=== PATIENT | female | born 1980 | race American Indian/Alaskan Native ===

== ENCOUNTER 2018-12-04 05:53 | Emergency (ER) | payer SELFPAY ==
--- NOTE | 2018-12-04 06:55 | XRay Report ---
RIGHT KNEE 3 VIEWS 0623 INDICATION: right knee pain COMPARISON: None available. FINDINGS: No fractures or dislocations are seen. Signer Name: Aleksandr Ramirez MD Signed: 12/04/2018 6:51 AM Workstation Name: [id number]
--- NOTE | 2018-12-04 07:06 | Emergency Department Report ---
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 pt states that she was at work when she slipped and fell in some grease. she has been ambulatory since the incident with some discomfort. she denies any numbness or weakness. she denies any previous injury of the knee. PMHx of asthma. allergy to PCN. - Related Data Previous Rx's Medication Instructions Recorded Last Taken Type Naproxen [Naprosyn] 500 mg PO BID PRN #20 tablet 12/04/18 Unknown Rx Allergies Allergy/AdvReac Type Severity Reaction Status Date / Time Penicillins Allergy Hives Verified 12/04/18 06:06 ED Review of Systems ROS: Stated complaint: RT KNEE PAIN Other details as noted in HPI Comment: All other systems reviewed and negative ED Past Medical Hx - Past Medical History Previous Medical History?: Yes Hx Asthma: Yes - Surgical History Past Surgical History?: Yes Additional Surgical History: Hernia repair - Social History Smoking Status: Current Every Day Smoker Substance Use Type: None - Medications Home Medications: Home Medications Medication Instructions Recorded Confirmed Last Taken Type Naproxen [Naprosyn] 500 mg PO BID PRN #20 tablet 12/04/18 Unknown Rx ED Physical Exam - General Limitations: No Limitations General appearance: alert, in no apparent distress - Head Head exam: Present: atraumatic, normocephalic - Eye Eye exam: Present: normal appearance - ENT ENT exam: Present: mucous membranes moist - Extremities Exam Extremities exam: Present: other (palpation anywhere on the right knee the patient states ellicits pain, no obvoius edema, no crepitus, no obvious deformity, pt refuses to do ROM, pt will not allow to fully examine the right knee to test ligaments, 2+ distal pulses) - Neurological Exam Neurological exam: Present: alert, oriented X3 - Psychiatric Psychiatric exam: Present: normal affect, normal mood - Skin Skin exam: Present: warm, dry, intact ED Course Vital Signs 12/04/18 12/04/18 06:01 07:39 Temperature 98.6 F Pulse Rate 75 70 Respiratory 16 16 Rate Blood Pressure 129/76 Blood Pressure 124/78 [Left] O2 Sat by Pulse 100 99 Oximetry ED Medical Decision Making - Radiology Data Radiology results: report reviewed RIGHT KNEE 3 VIEWS 0623 INDICATION: right knee pain COMPARISON: None available. FINDINGS: No fractures or dislocations are seen. 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 she has been ambulatory since the incident with some discomfort. she denies any numbness or weakness. she denies any previous injury of the knee. PMHx of asthma. allergy to PCN. VSS. on exam: palpation anywhere on the right knee the patient states ellicits pain, no obvious edema, no crepitus, no obvious deformity, pt refuses to do ROM, pt will not allow to fully examine the right knee to test ligaments, 2+ distal pulses. XR right knee: No fractures or dislocations are seen. will place pt in flora wrap, advised to remove at night. will give crutches to use. given prescription for naproxen. advised to take as prescribed as needed. will have pt follow up with an orthopedic doctor to have full knee assessment. advised to use ice, rest, elevation. follow up with an orthopedic doctor. return to the emergency room for any new or worsening symptoms. - Differential Diagnosis strain, sprain, fx, dislocation, tendon/ligament injury Critical care attestation.: If time is entered above; I have spent that time in minutes in the direct care of this critically ill patient, excluding procedure time. ED Disposition Clinical Impression: Right knee pain Qualifiers: Chronicity: acute Qualified Code(s): M25.561 - Pain in right knee Disposition: DC-01 TO HOME OR SELFCARE Is pt being admited?: No Does the pt Need Aspirin: No Condition: Stable Instructions: Knee Sprain (ED), Crutch Instructions (ED), RICE Therapy (ED) Additional Instructions: take medication as prescribed as needed. use ice, rest, elevation. do not sleep in acewrap. follow up with an orthopedic doctor. return to the emergency room for any new or worsening symptoms. Prescriptions: Naproxen [Naprosyn] 500 mg PO BID PRN #20 tablet PRN Reason: pain Referrals: NIRAV RICH MD [Staff Physician] - 2-3 Days Forms: Work/School Release Form(ED) Time of Disposition: 07:09 Print Language: NEPALI
[2018-12-04] MEDS ORDERED: TORADOL PO ONE (07:30)
[2018-12-04 07:40] VITALS: BP 124/78
== END 2018-12-04 07:39 | disposition home or self-care (01) ==
LOC: ED 05:53
DX: M25.561 Pain in right knee (principal); J45.909 Unspecified asthma, uncomplicated; F17.200 Nicotine dependence, unspecified, uncomplicated; Z88.0 Allergy status to penicillin

== ENCOUNTER 2020-02-07 20:07 | Emergency (ER) | payer SELFPAY ==
--- NOTE | 2020-02-07 22:56 | XRay Report ---
LEFT KNEE 3 VIEWS INDICATION / CLINICAL INFORMATION: left knee injury. COMPARISON: None available. FINDINGS: BONES/JOINT(S): No acute fracture or subluxation. No significant degenerative changes. SOFT TISSUES: No significant abnormality. ADDITIONAL FINDINGS: None. Signer Name: Merlin Pinto MD Signed: 02/07/2020 10:51 PM Workstation Name: [id number]
[2020-02-08] MEDS ORDERED: ACETAMINOPHEN 500 MG TAB PO ONE (01:55)
[2020-02-08] MEDS ORDERED: IBUPROFEN 600 MG TAB PO ONE (01:55)
--- NOTE | 2020-02-08 02:43 | Emergency Department Report ---
ED Lower Extremity HPI - General Chief Complaint: Extremity Injury, Lower Stated Complaint: FALL RIGHT KNEE INJURY Source: patient, EMS Mode of arrival: Stretcher Limitations: No Limitations - History of Present Illness Initial Comments: Patient is a 39-year-old -[place] female with a history of asthma who presents to the ED with complaint of acute onset persistent severe left knee pain after she [place] 2 [place] and landed on the left knee in the process. Patient states that the pain has been persistent and worse with ambulation and that she also developed mild swelling to the left knee. Patient denies syncope, seizures, traumatic injury, dizziness, chest pain, shortness of breath, numbness and tingling or weakness of lower extremities bilaterally, headache, neck pain, back pain, hip pain, abdominal pain or change in vision. MD Complaint: thigh injury (left), knee injury (left knee pain), fall -: Sudden, days(s) (2) Injury: Thigh: Left (left thigh), Knee: Left (left thigh) Type of Injury: blunt (from the fall) Place: street/outdoors Severity: severe Severity scale (0 -10): 8 Improves With: nothing Worsens With: weight bearing, movement, palpation Context: fall, direct blow, walking Associated Symptoms: swelling (left knee), able to partially bear weight. denies: numbness, tingling, unable to bear weight - Related Data Previous Rx's Medication Instructions Recorded Last Taken Type Naproxen [Naprosyn] 500 mg PO BID PRN #20 tablet 12/04/18 Unknown Rx Ibuprofen [Motrin] 800 mg PO Q8HR PRN #30 tablet 02/08/20 Unknown Rx methOCARBAMOL [Robaxin TAB] 750 mg PO Q12H PRN #20 tab 02/08/20 Unknown Rx traMADoL [Ultram] 50 mg PO Q6HR PRN #12 tablet 02/08/20 Unknown Rx Allergies Allergy/AdvReac Type Severity Reaction Status Date / Time Penicillins Allergy Hives Verified 12/04/18 06:06 ED Review of Systems ROS: Stated complaint: FALL RIGHT KNEE INJURY Other details as noted in HPI Constitutional: denies: chills, fever Eyes: denies: eye pain, eye discharge, vision change ENT: denies: ear pain, throat pain Respiratory: denies: cough, shortness of breath, wheezing Cardiovascular: denies: chest pain, palpitations Endocrine: no symptoms reported Gastrointestinal: denies: abdominal pain, nausea, diarrhea Genitourinary: denies: urgency, dysuria, discharge Musculoskeletal: joint swelling (left knee ), arthralgia (left thigh and knee pain), myalgia. denies: back pain Skin: denies: rash, lesions Neurological: denies: headache, weakness, paresthesias Psychiatric: denies: anxiety, depression Hematological/Lymphatic: denies: easy bleeding, easy bruising ED Past Medical Hx - Past Medical History Previous Medical History?: Yes Hx Asthma: Yes Additional medical history: Obesity - Surgical History Past Surgical History?: Yes Additional Surgical History: Hernia repair - Social History Smoking Status: Never Smoker Substance Use Type: None - Medications Home Medications: Home Medications Medication Instructions Recorded Confirmed Last Taken Type Naproxen [Naprosyn] 500 mg PO BID PRN #20 tablet 12/04/18 Unknown Rx Ibuprofen [Motrin] 800 mg PO Q8HR PRN #30 tablet 02/08/20 Unknown Rx methOCARBAMOL [Robaxin TAB] 750 mg PO Q12H PRN #20 tab 02/08/20 Unknown Rx traMADoL [Ultram] 50 mg PO Q6HR PRN #12 tablet 02/08/20 Unknown Rx ED Physical Exam - General Limitations: No Limitations General appearance: alert, in no apparent distress - Head Head exam: Present: atraumatic, normocephalic, normal inspection - Eye Eye exam: Present: normal appearance, PERRL, EOMI Pupils: Present: normal accommodation - ENT ENT exam: Present: normal exam, normal orophraynx, mucous membranes moist, TM's normal bilaterally, normal external ear exam - Neck Neck exam: Present: normal inspection, full ROM - Respiratory Respiratory exam: Present: normal lung sounds bilaterally. Absent: respiratory distress, wheezes, rales, rhonchi, chest wall tenderness, accessory muscle use, decreased breath sounds, prolonged expiratory - Cardiovascular Cardiovascular Exam: Present: regular rate, normal rhythm, normal heart sounds. Absent: systolic murmur, diastolic murmur, rubs, gallop - GI/Abdominal GI/Abdominal exam: Present: soft, normal bowel sounds. Absent: distended, tenderness, guarding, hyperactive bowel sounds - Extremities Exam Extremities exam: Present: normal inspection, full ROM, tenderness (Palpable left knee tenderness with mild swelling), normal capillary refill, joint swelling (left knee ). Absent: pedal edema - Back Exam Back exam: Present: normal inspection, full ROM. Absent: tenderness, CVA tenderness (R), CVA tenderness (L), muscle spasm, paraspinal tenderness, vertebral tenderness - Neurological Exam Neurological exam: Present: alert, oriented X3, CN II-XII intact, normal gait, reflexes normal - Psychiatric Psychiatric exam: Present: normal affect, normal mood - Skin Skin exam: Present: warm, dry, intact, normal color. Absent: rash ED Course Vital Signs 02/07/20 21:50 Temperature 98.3 F Pulse Rate 77 Respiratory 18 Rate Blood Pressure 151/98 O2 Sat by Pulse 100 Oximetry ED Lower Extremity MDM - Radiology Data Radiology results: report reviewed, image reviewed Findings [address] [address] XRay Report Signed Patient: MAMTA BLACK MR#: [id number] : 1980 Acct:[id number] Age/Sex: 39 / F ADM Date: 02/07/20 Loc: ED Attending Dr: Ordering Physician: ED MD FABIAN Date of Service: 02/07/20 Procedure(s): XR knee 3V LT Accession Number(s): [id number] cc: ED MD FABIAN Fluoro Time In Minutes: LEFT KNEE 3 VIEWS INDICATION / CLINICAL INFORMATION: left knee injury. COMPARISON: None available. FINDINGS: BONES/JOINT(S): No acute fracture or subluxation. No significant degenerative changes. SOFT TISSUES: No significant abnormality. ADDITIONAL FINDINGS: None. Signer Name: Merlin Pinto MD Signed: 02/07/2020 10:51 PM Workstation Name: [id number] Transcribed By: GERALD Dictated By: Merlin Pinto MD Electronically Authenticated By: Merlin Pinto MD Signed Date/Time: 02/07/202250 DD/ 50 TD/TT: - Medical Decision Making This is a 39-year-old -[place] female with a history of asthma who presents to the ED with complaint of acute onset persistent severe left knee pain after she slipped and fell down at a train station 2 days ago and landed on the left knee in the process. Patient states that the pain has been persistent and worse with ambulation and that she also developed mild swelling to the left knee. In the ED, patient is alert and oriented x3 and is not in distress. Left knee x-ray shows no acute fractures or subluxations. Patient was treated for pain in the ED and on reevaluation, patient's pain is well controlled me dications. Patient was discharged home on pain medications and also had her left knee splinted with Rikki wrap. Patient was advised to follow-up with her primary care physician in 7 to 10 days for reevaluation or return to the ED immediately if symptoms get worse. - Differential Diagnosis Knee fracture; knee sprain; leg contusion; muscle strain; Critical care attestation.: If time is entered above; I have spent that time in minutes in the direct care of this critically ill patient, excluding procedure time. ED Disposition Clinical Impression: Sprain of left knee/leg Qualifiers: Encounter type: initial encounter Qualified Code(s): S83.92XA - Sprain of unspecified site of left knee, initial encounter Contusion of left knee and lower leg Qualifiers: Encounter type: initial encounter Qualified Code(s): S80.02XA - Contusion of left knee, initial encounter; S80.12XA - Contusion of left lower leg, initial encounter Disposition: DC- TO HOME OR SELFCARE Is pt being admited?: No Does the pt Need Aspirin: No Condition: Stable Instructions: Contusion, [id number], Knee Sprain, Adult, [id number] Additional Instructions: Take medication with food, drink plenty of fluids and follow-up with your primary care physician in 7 to 10 days for reevaluation. Return to the ED immediately if symptoms get worse. Prescriptions: Ibuprofen [Motrin] 800 mg PO Q8HR PRN #30 tablet PRN Reason: Pain , Severe (7-10) methOCARBAMOL [Robaxin TAB] 750 mg PO Q12H PRN #20 tab PRN Reason: Muscle Spasm traMADoL [Ultram] 50 mg PO Q6HR PRN #12 tablet PRN Reason: Pain Referrals: [facility] [Provider Group] - 3-5 Days Forms: Work/School Release Form(ED) Time of Disposition: 02:43 Print Language: HUNGARIAN
[2020-02-08 05:19] VITALS: BP 142/82
== END 2020-02-08 02:52 | disposition home or self-care (01) ==
LOC: ED 20:07
DX: S83.92XA Sprain of unspecified site of left knee, initial encounter (principal); S80.02XA Contusion of left knee, initial encounter; S80.12XA Contusion of left lower leg, initial encounter; E66.9 Obesity, unspecified; J45.909 Unspecified asthma, uncomplicated; Z68.41 Body mass index [BMI] 40.0-44.9, adult; Z98.890 Other specified postprocedural states; Z79.899 Other long term (current) drug therapy; Z88.0 Allergy status to penicillin; W01.10XA Fall on same level from slipping, tripping and stumbling with subsequent striking against unspecified object, initial encounter; Y93.89 Activity, other specified; Y92.410 Unspecified street and highway as the place of occurrence of the external cause; Y99.8 Other external cause status

== ENCOUNTER 2021-09-27 12:55 | Emergency (ER) | payer SELFPAY ==
[2021-09-27 13:05] VITALS: BP 156/98
== END 2021-09-27 16:00 | disposition left against medical advice (07) ==
LOC: ED 12:55
DX: R53.1 Weakness (principal); Z53.21 Procedure and treatment not carried out due to patient leaving prior to being seen by health care provider